=== PATIENT | male | born 1990 | race Caucasian/White ===

== ENCOUNTER 2021-05-08 21:40 | Emergency (ER) | payer MEDICAID ==
[~2021-05-08] VITALS: Ht 180.3 cm; Wt 98.0 kg
[2021-05-08] MEDS: LORAZEPAM 1MG TABLET PO ONE (23:48)
[2021-05-08 23:49] VITALS: BP 130/77
[2021-05-08] MEDS: KETOROLAC 60MG/2ML VIAL IM ONE (23:49)
[2021-05-09] MEDS ORDERED: CYCL10TA7 MT (00:32)
[2021-05-09] MEDS ORDERED: IBUP-2029 MT (00:32)
== END 2021-05-09 01:35 | disposition home or self-care (01) ==
LOC: ER 21:40
DX: M54.50 Low back pain, unspecified (principal)
CPT/HCPCS: 72100; 96372; 99283; J1885